=== PATIENT | male | born 1995 | race Caucasian/White ===

== ENCOUNTER 2019-09-22 00:04 | Observation (INO) | payer BC ==
[2019-09-22] VITALS (13 sets, daily range): BP systolic 108–142; BP diastolic 49–84; Ht 175.3 cm; Wt 67.3 kg
[~2019-09-22] VITALS: Ht 175.3 cm; Wt 67.3 kg
--- NOTE | 2019-09-22 00:45 | NUR ---
PSYCH SCREENER AT BEDSIDE. PATIENT TALKING TO HER. ANSWERING QUESTIONS APPROPRIATELY
--- NOTE | 2019-09-22 00:55 | NUR ---
PATIENT IN TRAUMA 2 IN ER, HE ATTEMPTED SUICIDE BY OVERDOSING. HE DOES NOT WANT TO LIVE, FLAT AFFECT, NO EYE CONTACT, LOW [place] VOICE. CAN NOT COMMIT TO A SAFETY PLAN. HE WILL BE PLACED ON A ONE TO ONE.
[2019-09-22 01:01] LABS: BASOPHILS 0.3 % (0-2); CALCIUM 9.1 mg/dL (8.5-10.1); CARBON DIOXIDE 20.4 mmol/L (21.0-32.0); CREATININE - SERUM 1.7 mg/dL (0.6-1.3); EOSINOPHILS 0.4 % (0-7); HEMATOCRIT 47.4 % (42.0-54.0); HEMOGLOBIN 16.6 g/dL (13.5-17.5); IMMATURE GRANULOCYTES 0.8 % (0-5); LYMPHOCYTES 22.3 % (15-50); MCH 30.3 pg (26.0-34.0); MCV 86.7 fL (80.0-100.0); MEAN PLATELET VOLUME 10.1 fL (7.4-10.4); MONOCYTES 5.8 % (2-11); NEUTROPHILS 70.4 % (40-80); PLATELET COUNT 236 10x3/uL (130-400); POTASSIUM - SERUM 3.4 mmol/L (3.5-5.1); RBC 5.47 10x6/uL (4.20-6.10); RDW 12.2 % (11.5-14.5); WBC 10.9 10x3/uL (4.8-10.8)
[2019-09-22 01:06] LABS: ALBUMIN 4.5 g/dL (3.4-5.0); BILIRUBIN - TOTAL 0.48 mg/dL (0.2-1.3); PROTEIN - SERUM 7.5 g/dL (6.4-8.2)
[2019-09-22 02:26] LABS: BILIRUBIN NEGATIVE (NEGATIVE); GLUCOSE NEGATIVE (NEGATIVE); KETONE MODERATE mg/dL (NEGATIVE); NITRITE NEGATIVE (NEGATIVE); UROBILINOGEN NORMAL (NORMAL)
[2019-09-22 02:30] LABS: UDS - AMPHET NEGATIVE QUAL (NEGATIVE); UDS - BARB NEGATIVE QUAL (NEGATIVE); UDS - BENZO NEGATIVE QUAL (NEGATIVE); UDS - COCAINE NEGATIVE QUAL (NEGATIVE); UDS - OPIATE POSITIVE QUAL (NEGATIVE); UDS - PCP NEGATIVE QUAL (NEGATIVE); UDS - THC NEGATIVE QUAL (NEGATIVE)
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
--- NOTE | 2019-09-22 15:35 | NUR ---
DR HAAS AT BEDSIDE FOR EVAL, DISCUSSED WITH PATIENT NEED TO GET INPATIENT TREATMENT, HE AGREES AND SIGNS TRANSFER FORM,
--- NOTE | 2019-09-22 17:19 | MORECARE ---
CASE MANAGEMENT DISCHARGE SUMMARY PATIENT: LEANNE VICKERS UNIT: [id number] ADM DATE: 09/22/19 AGE: 24 : 97 SEX: M ROOM/BED: D.2304 AUTHOR: NABEEL OAKES PHYSICIAN: REFERRING PHYSICIAN: DEEPIKA HAAS MD DATE OF SERVICE: 09/22/19 Discharge Plan Patient Name: LEANNE VICKERS [facility] [facility] 1995 Planned Disposition: Psych facility Anticipated Discharge Date: Discharge Date: Expected LOS: Initial Reviewer: [email or web address] Initial Review Date: 09/22/2019 Generated: 09/22/19 6:19 pm Comments DCP- Discharge Planning Updated by [email or web address]: Cassandra Gutierrez on 09/22/19 3:[address] CM notified that patient needs Inpatient Psych placement. CM obtained packet and have sent it to [facility], [facility], [facility], [facility] and [facility]. Patient has agreed to transfer to inpatient psych at this time. CM awaiting placement to inpatient psych. CM attached unit number to packet for additional information if needed. External Providers External Provider: OTHER-OTHER Next Contact Date: Service Request Date: Service Type: Resolution: Reviewer: Comments: External Provider: OTHER-OTHER Next Contact Date: Service Request Date: Service Type: Resolution: Reviewer: Comments: External Provider: OTHER-OTHER Next Contact Date: Service Request Date: Service Type: Resolution: Reviewer: Comments: External Provider: OTHER-OTHER Next Contact Date: Service Request Date: Service Type: Resolution: Reviewer: Comments: External Provider: [facility] Next Contact Date: Service Request Date: Service Type: Resolution: Reviewer: Comments: External Provider: [facility] Next Contact Date: Service Request Date: Service Type: Resolution: Reviewer: Comments: External Provider: [facility] Next Contact Date: Service Request Date: Service Type: Resolution: Reviewer: Comments: External Provider: [facility] (Inpt Adult Psych) Next Contact Date: Service Request Date: Service Type: Resolution: Reviewer: Comments: Patient Name: LEANNE VICKERS Page [phone] at 1719 All edits/amendments must be made on the electronic document DICTATION DATE: 09/22/191718 DIE TURNER: MARYCARMEN 09/22/191718 RPT#: [id number] DC DATE: STATUS: ADM IN [facility] [address] [place] [address] END OF REPORT
--- NOTE | 2019-09-22 19:00 | NUR ---
RECEIVED SHIFT REPORT FROM ROMAN GUTIERREZ
--- NOTE | 2019-09-22 19:12 | MORECARE ---
CASE MANAGEMENT DISCHARGE SUMMARY PATIENT: LEANNE VICKERS UNIT: [id number] ADM DATE: 09/22/19 AGE: 24 : [birth year] SEX: M ROOM/BED: D.2304 AUTHOR: NABEEL OAKES PHYSICIAN: REFERRING PHYSICIAN: DEEPIKA HAAS MD DATE OF SERVICE: 09/22/19 Discharge Plan Patient Name: LEANNE VICKERS [facility] [facility] 1995 Planned Disposition: Psych facility Anticipated Discharge Date: Discharge Date: Expected LOS: Initial Reviewer: [email or web address] Initial Review Date: 09/22/2019 Generated: 09/22/19 8:12 pm Comments DCP- Discharge Planning Updated by [email or web address]: Cassandra Gutierrez on 09/22/19 6:[address] PATIENT WAS ACCEPTED TO [facility] UNIT NURSING TO CALL REPORT AND CALL AMBULANCE FOR TRANSFER DCP- Discharge Planning Updated by [email or web address]: Cassandra Gutierrez on 09/22/19 3:[address] CM notified that patient needs Inpatient Psych placement. CM obtained packet and have sent it to [facility], [facility], [facility], [facility], [facility] and [facility]. Patient has agreed to transfer to inpatient psych at this time. CM awaiting placement to inpatient psych. CM attached unit number to packet for additional information if needed. Last DP export: 09/22/19 4:19 p Patient Name: LEANNE VICKERS Page [phone] at 1912 All edits/amendments must be made on the electronic document DICTATION DATE: 09/22/191911 GENERAL CLERK: MARYCARMEN 09/22/191911 RPT#: [id number] DC DATE: STATUS: ADM IN [facility] [address] [place] [address] END OF REPORT
--- NOTE | 2019-09-22 19:15 | NUR ---
SHIFT ASSESSMENT PER FLOW SHEET, VS OBTAINED, IV IN RIGHT WRIST AREA INTACT WITH NO REDNESS OR EDEMA INFUSING VIA PUMP NS AT 250 ML/HR, PT REPORTS FLATUS, NO BM TODAY, AND VOIDING WITH NO DIFFICULTY, POC DISCUSSED WITH PT REGARDING TRANSFER TO [facility] VIA AMB, PT VERBALIZES UNDERSTANDING, INQUIRES ABOUT NOT HAVING A SHIRT ON, INFORMED HIM THAT I WILL EITHER PROVIDE A GOWN OR A SCRUB SHIRT, PT VERBALIZES UNDERSTANDING, DENIES FURTHER QUESTIONS OR NEEDS AT THIS TIME
--- NOTE | 2019-09-22 20:10 | NUR ---
CALLED AND GAVE REPORT TO AMADO BRAY RN FOR PT TRANSFER, SHE INFORMED ME THE ADMITTING DOCTOR WILL BE DR. KEITH REINOSO AND THAT PT HAS TO GO THROUGH THE EMERGENCY DEPARTMENT FIRST
--- NOTE | 2019-09-22 20:24 | NUR ---
ROMAN HUNTMILLING GENERAL SUPERINTENDENT NOTIFIED REGARDING TRANSFER, SHE REQUESTS THAT I BRING THE FORMS TO HER FOR SIGNATURE
--- NOTE | 2019-09-22 20:30 | NUR ---
IV D/C'ED, TIP INTACT, PRESSURE HELD FOR 2 MINUTES, BANDAID APPLIED, TELEMETRY REMOVED, PT INQUIRES ABOUT HAVING A DENTIST APPT ON WEDNESDAY, INST PT TO LET HIS NURSE KNOW AND THAT THEY MAY CALL FOR HIM TO CANCEL THE APPT, PT DENIES ANYMORE QUESTIONS AT THIS TIME
--- NOTE | 2019-09-22 20:35 | NUR ---
ROMAN BAILEY, CHARGE NURSE NOTIFIED AMBULANCE FOR TRANSFER
--- NOTE | 2019-09-22 20:38 | NUR ---
ROMAN GUTIERREZ STILL ON UNIT, SHE REPORTS THAT SHE WILL TAKE THE FORMS TO STEREOTYPE CASTER FOR SIGNATURE OF TRANSFER
--- NOTE | 2019-09-22 20:47 | NUR ---
ROMAN GUTIERREZ BACK ON UNIT, COPIED FORMS AND GIVEN TO ROMAN BAILEY CHARGE NURSE AT THIS TIME
--- NOTE | 2019-09-22 21:30 | NUR ---
PT AWAKE, CONTINUES WATCHING TV, DENIES NEEDS OR PAIN AT THIS TIME
--- NOTE | 2019-09-22 22:03 | NUR ---
WENT OVER POC AGAIN FOR DISCHARGE TO [facility] AND DISCHARGE PAPER WORK, PT VERBALIZES UNDERSTANDING, INQIRES ABOUT WHEN HE WOULD BE LEAVING, INFORMED HIM SOON THE EMS GETS HERE, PT VERBALIZES UNDERSTANDING, DENIES FURTHER QUESTIONS OR NEEDS AT THIS TIME
--- NOTE | 2019-09-22 23:15 | NUR ---
PT AWAKE, WATCHING TV, VS OBTAINED, PT DENIES NEEDS OR PAIN AT THIS TIME
--- NOTE | 2019-09-23 00:15 | NUR ---
PT AWAKE, WATCHING TV, EMPTIED 900 MLS FROM URINAL, PT REPORTS SEVERAL VOIDS, PT REQUESTED AND SERVED COLA, PT STATES "I DON'T THINK THEY ARE COMING TONIGHT", INFORMED PT THAT THEY WILL COME SOMETIME TONIGHT, BUT I JUST WASN'T SURE WHAT TIME, PT VERBALIZES UNDERSTANDING, DENIES FURTHER NEEDS OR PAIN AT THIS TIME
--- NOTE | 2019-09-23 01:08 | NUR ---
PT RESTING WITH EYES CLOSED, AROUSES TO SOFT VERBAL STIMULATION, EMS HERE TO TRANSPORT PT TO [facility], PT PLACED IN GOWN, AMB TO STRETCHER PER SELF, GAIT STEADY, PT LEFT UNIT VIA STRETCHER WITH EMS CREW WITH ALL PAPER WORK AND PT'S BELONGINGS
--- NOTE | 2019-09-23 15:05 | MORECARE ---
CASE MANAGEMENT DISCHARGE SUMMARY PATIENT: LEANNE VICKERS UNIT: [id number] ADM DATE: 09/22/19 AGE: 24 : 97 SEX: M ROOM/BED: D.2304 AUTHOR: NABEEL OAKES PHYSICIAN: REFERRING PHYSICIAN: DEEPIKA HAAS MD DATE OF SERVICE: 09/23/19 Discharge Plan Patient Name: LEANNE VICKERS [facility] [facility] 1995 Planned Disposition: Psych facility Anticipated Discharge Date: Discharge Date: 09/23/2019 Expected LOS: Initial Reviewer: [email or web address] Initial Review Date: 09/22/2019 Generated: 09/23/19 4:05 pm Comments DCP- Discharge Planning Updated by [email or web address]: Cassandra Gutierrez on 09/22/19 6:[address] PATIENT WAS ACCEPTED TO [facility] UNIT NURSING TO CALL REPORT AND CALL AMBULANCE FOR TRANSFER DCP- Discharge Planning Updated by [email or web address]: Cassandra Gutierrez on 09/22/19 3:[address] CM notified that patient needs Inpatient Psych placement. CM obtained packet and have sent it to [facility], [facility], [place], [facility], [facility], [facility] and [facility]. Patient has agreed to transfer to inpatient psych at this time. CM awaiting placement to inpatient psych. CM attached unit number to packet for additional information if needed. Last DP export: 09/22/19 6:12 p Patient Name: LEANNE VICKERS Page 00279 at 1505 All edits/amendments must be made on the electronic document DICTATION DATE: 09/23/19 1505 DEWATERING FILTERING SUPERVISOR: MARYCARMEN 09/23/19 1505 RPT#: [id number] DC DATE:09/23/19 STATUS: DIS IN [place] [id number] [facility] [place] [address] END OF REPORT
== END 2019-09-23 01:08 ==
LOC: D.ER 00:04 → D.ICU 03:39 → OBSVTIME 03:39 → D.ICU 09-23 01:08
PROVIDERS: Family Medicine; ADMIT Emergency Medicine; ATTEND Emergency Medicine
DX: T50.902A Poisoning by unspecified drugs, medicaments and biological substances, intentional self-harm, initial encounter (principal); E87.2 Acidosis; R45.851 Suicidal ideations